=== PATIENT | male | born 1945 | race Caucasian/White ===

== ENCOUNTER → 2024-05-07 12:56 | Outpatient (REF) | payer MEDICARE, BC, SELFPAY | LOC: HWRCS 12:56 | PROVIDERS: ATTENDING PHYSICIAN Nurse Practitioner Gerontology; FAMILY PHYSICIAN Family Medicine | DX: I25.10 Atherosclerotic heart disease of native coronary artery without angina pectoris (principal); R01.1 Cardiac murmur, unspecified | CPT/HCPCS: 93306 ==